=== PATIENT | male | born 1980 | race Caucasian/White ===

== ENCOUNTER 2023-04-11 22:30 | Emergency (ER) | payer BC, SELFPAY ==
[2023-04-11] VITALS (8 sets, daily range): BP systolic 115–138; BP diastolic 82–90; PULSE 70–83; RESP 18; TEMP 36.7; O2SAT 94–99; BMI 34.0
--- NOTE | 2023-04-11 22:50 | ED_ITS ---
HPI - General Adult General Chief complaint: Shortness of Breath/Dyspnea Stated complaint: chest pain,shortness of breath Time Seen by Provider: 04/11/23 22:38 History of Present Illness HPI narrative: This 42-year-old male comes in reporting parasternal chest discomfort that began about 10 or 11 hours prior to arrival. He states that it has been constant since then and is reproducible when taking a deep breath or when laying back flat. He does not describe any particular injury event or strenuous activity. He states that he was swinging some children around playfully a few days ago but did not have any symptoms at that time. He denies having any nausea, vomiting, lightheadedness, shortness of breath, diaphoresis, or exercise intolerance. He does have some cardiac risk factors with family history and he is a smoker. He states that he was on a blood pressure medicine in the past but he lost some weight and improved his daily activities and now is no longer taking any medications. Related Data Home Medications Medication Instructions Recorded Confirmed No Known Home Medications 04/11/23 04/11/23 Allergies Allergy/AdvReac Type Severity Reaction Status Date / Time ibuprofen Allergy Mild Hives Verified 04/11/23 22:44 naproxen Allergy Mild Hives Verified 04/11/23 22:44 Penicillins Allergy Mild Hives Verified 04/11/23 22:44 Review of Systems Status of ROS: Reports: 10 or more systems reviewed and unremarkable except as noted in History and below Narrative: Constitutional: No fevers, no weight gain or loss. Eyes: No discharge. No vision changes. HENT: No congestion, no sore throat, no ear pain. Cardiovascular: No palpitations. Respiratory: No shortness of breath, no wheezes, no cough. Gastrointestinal: No abdominal pain, no vomiting, no diarrhea. Genitourinary: No dysuria, no hematuria. Musculoskeletal: Normal range of motion. Skin: No rashes, no pruritis. Neurological: No dizziness, weakness, sensory change, speech change. Endo/Heme/Allergies: No bruising or bleeding. No polydipsia. Pysch: no suicidality, no anxiety, no insomnia. All other systems reviewed and are negative. [facility] Medical History (Updated 04/11/23 @ 23:27 by Toby Vegas MD) Hiatal hernia ?K44.9 - Diaphragmatic hernia without obstruction or gangrene (ICD-10) Gastropathy ?K31.9 - Disease of stomach and duodenum, unspecified (ICD-10) Hypertension ?I10 - Essential (primary) hypertension (ICD-10) Surgical History (Updated 04/11/23 @ 22:45 by Dennis Robin RN) No significant past surgical history Social History Smoking Status: Current every day smoker Second hand tobacco smoke exposure: No How often do you have a drink containing alcohol: never How often do you have six or more drinks on one occasion: Never AUDIT-C Alcohol total score: 0 Non-prescribed substance use: marijuana (any form) Exam Narrative: Exam Narrative: Constitutional: Well-developed, well-nourished, no acute distress. HEENT: Normocephalic, atraumatic. Neck: Normal range of motion. Nontender. Supple. Heart: Regular. No murmurs. Normal rate. Intact distal pulses. Lungs: Clear to auscultation. No wheezes, rhonchi, or rales. Chest discomfort is along the sternum and not reproducible with palpation but is so with deep breath and with certain movements. Abdomen: Normal bowel sounds. Nontender. No rebound tenderness. Genitalia: Deferred. Back: No midline tenderness. Normal range of motion. Extremities: Normal range of motion. No injury. Skin: Intact. No rash. Warm. No erythema or pallor. Neurologic: No altered sensation. No weakness. Alert and oriented. Psychiatric: No suicidality. No anxiety or depression. No insomnia. Nursing notes and vitals signs are reviewed. Const: Vital Signs, click to edit/add: Vital Signs - 24 hr 04/11/23 22:38 04/11/23 22:41 04/11/23 22:42 Temperature 98.0 F Pulse Rate 77 83 Pulse Rate [Right Pulse Oximeter] 83 Respiratory Rate 18 Blood Pressure 137/90 H Blood Pressure [Ri ght Upper Arm] 137/90 H Pulse Oximetry 99 97 97 Oxygen Delivery Me thod Room Air 04/11/23 23:00 04/11/23 23:02 Temperature Pulse Rate 80 71 Pulse Rate [Right Pulse Oximeter] Respiratory Rate Blood Pressure 138/87 Blood Pressure [Ri ght Upper Arm] Pulse Oximetry 95 94 Oxygen Delivery Me thod Course Vital Signs Vital signs: Initial Vital Signs Temperature 98.0 F 04/11/23 22:38 Temperature Source Temporal Artery Scan 08/03/23 22:38 Pulse Rate 83 04/11/23 22:38 Pulse Rhythm Regular 04/11/23 22:38 Pulse Strength 3+ Normal 04/11/23 22:38 Respiratory Rate 18 04/11/23 22:38 Blood Pressure 137/90 H 04/11/23 22:38 Blood Pressure Mean 105 04/11/23 22:38 Blood Pressure Position Sitting 04/11/23 22:38 Pulse Oximetry 99 04/11/23 22:38 Oxygen Delivery Method Room Air 04/11/23 22:38 Vital Signs Temperature 98.0 F 04/11/23 22:38 Pulse Rate 83 04/11/23 22:38 Respiratory Rate 18 04/11/23 22:38 Blood Pressure 137/90 H 04/11/23 22:38 Pulse Oximetry 99 04/11/23 22:38 Oxygen Delivery Method Room Air 04/11/23 22:38 Temperature 98.0 F 04/11/23 22:38 Pulse Rate 71 04/11/23 23:02 Respiratory Rate 18 04/11/23 22:38 Blood Pressure 138/87 04/11/23 23:02 Pulse Oximetry 94 04/11/23 23:02 Oxygen Delivery Method Room Air 04/11/23 22:38 Medical Decision Making MDM Narrative Medical decision making narrative: This patient comes in reporting chest discomfort as described above. His pain is reproducible when taking a deep breath and when moving in certain positions. EKG and troponin returned with normal findings as do the rest of his labs. This patient's symptoms are characteristic of chest wall pain or costal chondritis. Patient is reassured with these results. He is okay to return home to continue current plans. I advised using [id number] medicines also as needed and directed. I also recommended that he stop smoking. Lab Data Labs: Lab Results 04/11/23 04/11/23 Range/Units 22:50 23:06 WBC 11.15 H (4.50-11.00) K/uL RBC 4.51 (4.30-5.90) m/uL Hgb 13.2 L (13.5-17.5) gm/dL Hct 40.8 (37.0-53.0) % MCV 91 (80-100) fL MCH 29 (26-34) pg MCHC 32 (32-36) gm/dL RDW Coeff of Maria Isabel 13.1 (11.5-15.5) % Plt Count 264 (140-440) K/uL Neut % (Auto) 60.3 (42.0-72.0) % Lymph % (Auto) 29.0 (20-44) % [place] % (Auto) 6.4 (0.0-11.0) % Eos % (Auto) 3.1 (0.0-7.0) % Baso % (Auto) 0.3 (0.0-3.0) % Neut # (Auto) 6.70 (1.7-7.0) K/uL Lymph # (Auto) 3.20 H (0.90-2.90) K/uL [place] # (Auto) 0.70 (0.00-0.90) K/UL Eos # (Auto) 0.30 (0.00-0.50) K/uL Baso # (Auto) 0.00 (0.00-0.30) K/uL Abs Immat Gran (auto) 0.10 (0.00-0.30) K/uL Imm/Tot Granulo (auto) 0.9 % Sodium 134 L (135-149) mmol/L Potassium 3.6 (3.6-5.1) mmol/L Chloride 102 (96-114) mmol/L Carbon Dioxide 25 (20-32) mmol/L BUN 15 (5-24) mg/dL Creatinine 0.7 (0.5-1.5) mg/dL Estimated Creat Clear 137.47 Estimated GFR 118 ml/min Glucose 114 (60-115) mg/dL Calcium 8.8 (8.4-10.6) mg/dL POC Troponin I 0.01 (0.01-0.04) ng/ml ECG Data Attestation: I personally reviewed and interpreted this ECG as follows: Interpretation: Normal sinus rhythm. Rate is 82 beats per minute. There are no ST or T-wave abnormalities. Discharge Plan Discharge Clinical Impression: Acute chest wall pain Patient Disposition: Home, Self-Care Condition: Stable Additional Instructions: Use [id number] medicines as needed and directed. Activity as tolerated. Follow up with MD or return if worsening. Prescriptions: No Action No Known Home Medications Follow Up/Referrals: Provider,Not a Local [Primary Care Provider] - Stand Alone Forms: MyHealth Info Instructions
[2023-04-11 23:14] LABS: Hematocrit 40.8 % (37.0-53.0); Hemoglobin* 13.2 gm/dL (13.5-17.5); Mean Corpuscular HGB Conc 32 gm/dL (32-36); Mean Corpuscular Hemoglobin 29 pg (26-34); Mean Corpuscular Volume 91 fL (80-100); Neutrophils Percent Auto 60.3 % (42.0-72.0); Platelet Count* 264 K/uL (140-440); RDW Coefficient of Variation % 13.1 % (11.5-15.5); Red Blood Count 4.51 m/uL (4.30-5.90); White Blood Count* 11.15 K/uL (4.50-11.00)
[2023-04-11 23:15] LABS: Basophils Percent Auto 0.3 % (0.0-3.0); Eosinophils Percent Auto 3.1 % (0.0-7.0); Immature Granulocytes Pct Auto 0.9 %; Monocytes Percent Auto 6.4 % (0.0-11.0)
[2023-04-11 23:19] LABS: Troponin, Point-of-Care* 0.01 ng/ml (0.01-0.04)
[2023-04-11 23:23] LABS: Slide Review Reflex No
[2023-04-11 23:27] LABS: Chloride* 102 mmol/L (96-114); Potassium* 3.6 mmol/L (3.6-5.1); Sodium* 134 mmol/L (135-149)
[2023-04-11 23:30] LABS: Blood Urea Nitrogen* 15 mg/dL (5-24); Calcium* 8.8 mg/dL (8.4-10.6); Carbon Dioxide* 25 mmol/L (20-32); Creatinine* 0.7 mg/dL (0.5-1.5); Est. Creatinine Clearance* 137.47; Estimated Glomerular Filt Rate 118 ml/min; Glucose* 114 mg/dL (60-115)
== END 2023-04-11 23:53 | disposition home or self-care (01) ==
PROVIDERS: Emergency Provider Emergency Medicine Emergency Medical Services
DX: R07.89 Other chest pain (principal)
CPT/HCPCS: 36415; 80048; 84484; 85025; 93005; 99284